=== PATIENT | female | born 1955 | race Caucasian/White ===

== ENCOUNTER 2016-05-25 13:41 | Outpatient (CLI) | payer MEDICARE | END 2016-05-25 13:42 | disposition home or self-care (01) | DX: E03.9 Hypothyroidism, unspecified (principal) ==

== ENCOUNTER 2016-05-31 11:27 | Outpatient (CLI) | payer MEDICARE | END 2016-05-31 11:28 | disposition home or self-care (01) | DX: Z83.3 Family history of diabetes mellitus (principal); Z13.1 Encounter for screening for diabetes mellitus ==

== ENCOUNTER 2016-06-01 10:30 | Outpatient (CLI) | payer MEDICARE | END 2016-06-01 10:31 | disposition home or self-care (01) | DX: R60.0 Localized edema (principal) ==

== ENCOUNTER 2016-07-22 12:39 | Outpatient (CLI) | payer MEDICARE ==
[2016-07-22 18:33] LABS: THYROID STIMULATING HORMONE 4.95 uIU/mL (0.34-5.60)
== END 2016-07-22 12:40 | disposition home or self-care (01) ==
LOC: LAB.F 12:39
PROVIDERS: ATTEND Nurse Practitioner Family
DX: E03.9 Hypothyroidism, unspecified (principal)
CPT/HCPCS: 36415; 84439; 84443

== ENCOUNTER 2016-11-23 16:45 | Emergency (ER) | payer MEDICARE ==
[2016-11-23] MEDS ORDERED: ASPIRIN CHEW 81 MG TABLET PO STA (17:03)
--- NOTE | 2016-11-23 17:08 | ED Physician Documentation ---
PD HPI ABD PAIN - Stated complaint Stated Complaint: CHEST PX,JAW PX - History obtained from History obtained from: Patient, Family () - History of Present Illness Timing - onset: Other (developed substernal chest pressure about 1/2 hour ago while shopping with radiation to jaw, waxed and waned, now gone. No radation to back. No dyspnea, dizziness, nausea or sweats or fatigue. Other than jaw radiation feels like past indigestion.) Review of Systems Ten Systems: 10 systems reviewed and negative Constitutional: denies: Fever, Chills Ears: reports: Reviewed and negative Cardiac: reports: Chest pain / pressure. denies: Palpitations, Pedal edema, Calf pain Respiratory: reports: Reviewed and negative GI: denies: Abdominal Pain, Nausea, Vomiting Musculoskeletal: reports: Extremity swelling (on and off RLE swelling for 3 mos) PD PAST MEDICAL HISTORY - Past Medical History Past Medical History: Yes Endocrine/Autoimmune: HyPOthyroidism GI: Ulcers - Past Surgical History Past Surgical History: Yes General: Gastric surgery - Present Medications Home Medications: Ambulatory Orders Medication Instructions Recorded Confirmed Ferrous Fumarate 324 mg PO DAILY #90 tablet 11/23/16 Levothyroxine [Synthroid] 1 tab PO DAILY 11/23/16 11/23/16 Omeprazole [PriLOSEC] 20 mg PO DAILY #90 capsule 11/23/16 hydroCHLOROthiazide [Hydrodiuril] 12.5 mg PO DAILY 11/23/16 11/23/16 - Allergies Allergies/Adverse Reactions: Allergies Allergy/AdvReac Type Severity Reaction Status Date / Time Sulfa (Sulfonamide Allergy Anaphylaxis Verified 11/23/16 17:09 Antibiotics) Tetracyclines AdvReac Anaphylaxis Verified 11/23/16 17:09 - Living Situation Living Situation: reports: With family - Social History Does the pt smoke?: No Does the pt drink ETOH?: No - Family History Family history: reports: Other (Bother/dad with CHF) PD ED PE NORMAL - Vitals Vital signs reviewed: Yes - General General: Alert and oriented X 3, No acute distress - HEENT HEENT: PERRL, EOMI - Neck Neck: Supple, no meningeal sign, No bony TTP - Cardiac Cardiac: RRR, No murmur - Respiratory Respiratory: No respiratory distress, Clear bilaterally - Abdomen Abdomen: Normal bowel sounds, Soft, Non tender - Back Back: No CVA TTP, No spinal TTP - Derm Derm: Normal color, Warm and dry, No rash - Extremities Extremities: No edema, No calf tenderness / cord - Neuro Neuro: Alert and oriented X 3, Normal speech - Psych Psych: Normal mood, Normal affect Results - Vitals Vitals: Vital Signs - 24 hr 11/23/16 11/23/16 11/23/16 17:06 18:55 19:17 Temperature 37.3 C Heart Rate 75 69 70 Respiratory 15 15 17 Rate Blood Pressure 142/79 H 142/79 H 133/77 H O2 Saturation 100 98 100 Oxygen O2 Source Room air - EKG (time done) 1651 Rate: Rate (enter#) (77) Rhythm: NSR Palmer: Normal Intervals: Normal HI QRS: Normal Ischemia: Normal ST segments Computer interpretation: Agree with computer - Labs Labs: Laboratory Tests 11/23/16 11/23/16 11/23/16 17:00 17:11 17:22 WBC 5.0 RBC 3.73 L Hgb 9.7 L Hct 31.1 L MCV 83.3 MCH 26.1 L MCHC 31.3 L RDW 16.6 H Plt Count 318 MPV 8.4 Neut # 2.7 Lymph # 1.6 Liberty # 0.5 Eos # 0.1 Baso # 0.0 Absolute Nucleated RBC 0.00 Nucleated RBC % 0.0 D-Dimer < 200.0 L Sodium 131 L Potassium 4.2 Chloride 100 L Carbon Dioxide 24 Anion Gap 7.0 BUN 15 Creatinine 0.8 Estimated GFR (MDRD) 73 L Glucose 111 H Calcium 7.9 L Total Bilirubin 0.6 AST 25 ALT 18 Alkaline Phosphatase 52 Troponin I Total Protein 6.8 Albumin 4.1 Globulin 2.7 Albumin/Globulin Ratio 1.5 Lipase 19 L 11/23/16 11/23/16 17:22 18:58 WBC RBC Hgb Hct MCV MCH MCHC RDW Plt Count MPV Neut # Lymph # Liberty # Eos # Baso # Absolute Nucleated RBC Nucleated RBC % D-Dimer Sodium Potassium Chloride Carbon Dioxide Anion Gap BUN Creatinine Estimated GFR (MDRD) Glucose Calcium Total Bilirubin AST ALT Alkaline Phosphatase Troponin I < 0.04 < 0.04 Total Protein Albumin Globulin Albumin/Globulin Ratio Lipase - Rads (name of study) 1v chest Radiology: EMP read contemporaneously (normal) PD MEDICAL DECISION MAKING - ED course ED course: 60-year-old woman woman with resolved pain, initial workup shows a nonischemic EKG while she is pain-free. She is administered aspirin. Her chest x-ray is normal. She is noted to have anemia, this is been a recurrent issue in the past and she has been noncompliant with her iron and Prilosec lately which she is given a prescription for. She also has modest hyponatremia, she really recently started occasional hydrochlorothiazide for recurrent right leg swelling. 2 troponins were done 2 hours apart in the emergency department which were both undetectable.Discussed need for follow-up for recheck of anemia, hyponatremia, and a stress test. Departure - Departure Disposition: 01 Home, Self Care Clinical Impression: Hyponatremia Chest pain Qualifiers: Chest pain type: unspecified Qualified Code(s): R07.9 - Chest pain, unspecified Anemia Qualifiers: Anemia type: iron deficiency Iron deficiency anemia type: unspecified iron deficiency Qualified Code(s): D50.9 - Iron deficiency anemia, unspecified Condition: Good Record reviewed to determine appropriate education?: Yes Instructions: ED Chest Pain Atypical Unkn Cause Prescriptions: Ferrous Fumarate 324 mg PO DAILY #90 tablet Omeprazole [PriLOSEC] 20 mg PO DAILY #90 capsule Comments: Return immediately for recurrent chest pain, call 911. Follow-up with your doctor for reevaluation of your recurrent anemia, hyponatremia (low sodium), and to schedule a stress test. Your blood pressure was elevated today on check into the emergency department. This does not mean that you have hypertension, it is a common phenomenon to come to the emergency department and have elevated blood pressure. I recommend that she see your primary care physician within the week to have it rechecked when you are feeling better.
[2016-11-23 17:10] LABS: EOSINOPHILS # (AUTO) 0.1 10^3/uL (0.0-0.7); EOSINOPHILS % (AUTO) 1.1 %; HCT - HEMATOCRIT 31.1 % (37.0-47.0); HGB - HEMOGLOBIN 9.7 g/dL (12.0-16.0); LYMPHOCYTES # (AUTO) 1.6 10^3/uL (1.5-3.5); LYMPHOCYTES % (AUTO) 32.9 %; MEAN CORPUSCULAR HEMOGLOBIN 26.1 pg (27.0-31.0); MEAN CORPUSCULAR HGB CONC 31.3 g/dL (32.0-36.0); MEAN CORPUSCULAR VOLUME 83.3 fL (81.0-99.0); MEAN PLATELET VOLUME 8.4 fL (7.9-10.8); MONOCYTES # (AUTO) 0.5 10^3/uL (0.0-1.0); MONOCYTES % (AUTO) 10.3 %; NEUTROPHILS # (AUTO) 2.7 10^3/uL (1.5-6.6); NEUTROPHILS % (AUTO) 54.7 %; RED BLOOD COUNT 3.73 10^6/uL (4.20-5.40); RED CELL DISTRIBUTION WIDTH 16.6 % (12.0-15.0)
[2016-11-23] MEDS ORDERED: ASPIRIN CHEW 81 MG TABLET ONE (17:18)
--- NOTE | 2016-11-23 17:26 | XRAY Preliminary Report ---
Exam: XR CHEST 1 VIEW IMPRESSION: No acute intrathoracic plain film abnormality. [facility] SITE ID: [id number]
--- NOTE | 2016-11-23 17:27 | XRAY Report ---
EXAM: CHEST RADIOGRAPHY EXAM DATE: 11/23/2016 05:14 PM. CLINICAL HISTORY: Chest pain. COMPARISON: None. TECHNIQUE: 1 view. FINDINGS: Lungs/Pleura: No focal opacities evident. No pleural effusion. No pneumothorax. Mediastinum: There is mild cardiomegaly. Other: None. IMPRESSION: No acute intrathoracic plain film abnormality. [facility] Referring Provider Line: [phone] SITE ID: [id number]
[2016-11-23 17:39] LABS: ALBUMIN/GLOBULIN RATIO 1.5 (1.0-2.2); BILIRUBIN,TOTAL 0.6 mg/dL (0.2-1.0); CALCIUM 7.9 mg/dL (8.5-10.3); CREATININE 0.8 mg/dL (0.4-1.0); POTASSIUM 4.2 mmol/L (3.5-5.0); TOTAL PROTEIN 6.8 g/dL (6.7-8.2)
[2016-11-23 19:43] VITALS: BP 132/78
== END 2016-11-23 19:40 | disposition home or self-care (01) ==
LOC: ED 16:45
DX: E87.1 Hypo-osmolality and hyponatremia (principal); R07.9 Chest pain, unspecified; D50.9 Iron deficiency anemia, unspecified; E03.9 Hypothyroidism, unspecified; R03.0 Elevated blood-pressure reading, without diagnosis of hypertension
CPT/HCPCS: 36415; 71010; 80053; 83690; 84484; 85025; 85379; 93005; 99283; 99284; A9270

== ENCOUNTER 2017-06-22 08:00 | Outpatient (CLI) | payer MEDICARE ==
[2017-06-22 17:47] LABS: BILIRUBIN,URINE NEGATIVE (NEGATIVE); GLUCOSE, URINE (UA) NEGATIVE (NEGATIVE); KETONES,URINE (UA) TRACE mg/dL (NEGATIVE); LEUKOCYTE ESTERASE, URINE NEGATIVE (NEGATIVE); NITRITE,URINE NEGATIVE (NEGATIVE); OCCULT BLOOD,URINE TRACE-LYSE (NEGATIVE); PROTEIN,URINE NEGATIVE (NEGATIVE); UROBILINOGEN,URINE 0.2 (NORMAL) E.U./dL (NORMAL)
[2017-06-22 17:48] LABS: CLARITY,URINE CLEAR (CLEAR)
[2017-06-22 17:58] LABS: BACTERIA,URINE Few /HPF (None Seen); RBC,URINE 0-5 /HPF (0-5); SQUAMOUS EPITHELIAL CELL,UR NONE SEEN (<= Few)
== END 2017-06-22 08:01 | disposition home or self-care (01) ==
LOC: LAB.R 08:00
PROVIDERS: ATTEND Nurse Practitioner Family
DX: R30.0 Dysuria (principal)
CPT/HCPCS: 81001; 87086

== ENCOUNTER 2017-06-27 08:11 | Outpatient (CLI) | payer MEDICARE ==
[2017-06-27 12:07] LABS: BASOPHILS % (AUTO) 0.4 %; EOSINOPHILS # (AUTO) 0.1 10^3/uL (0.0-0.7); EOSINOPHILS % (AUTO) 2.2 %; HGB - HEMOGLOBIN 10.5 g/dL (12.0-16.0); LYMPHOCYTES # (AUTO) 1.6 10^3/uL (1.5-3.5); LYMPHOCYTES % (AUTO) 34.2 %; MEAN CORPUSCULAR HEMOGLOBIN 26.8 pg (27.0-31.0); MEAN CORPUSCULAR HGB CONC 31.9 g/dL (32.0-36.0); MEAN CORPUSCULAR VOLUME 83.8 fL (81.0-99.0); MONOCYTES # (AUTO) 0.5 10^3/uL (0.0-1.0); MONOCYTES % (AUTO) 9.9 %; NEUTROPHILS # (AUTO) 2.5 10^3/uL (1.5-6.6); NEUTROPHILS % (AUTO) 53.3 %; PLT - PLATELET COUNT 464 10^3/uL (130-450); RED BLOOD COUNT 3.93 10^6/uL (4.20-5.40); RED CELL DISTRIBUTION WIDTH 14.6 % (12.0-15.0); WHITE BLOOD COUNT 4.7 x10^3/uL (4.8-10.8)
[2017-06-27 12:19] LABS: % IRON SATURATION 7 % (20-50); ALBUMIN 3.8 g/dL (3.2-5.5); ALBUMIN/GLOBULIN RATIO 1.1 (1.0-2.2); ALKALINE PHOSPHATASE 53 IU/L (42-121); ALT ALANINE AMINOTRANSFERASE 12 IU/L (10-60); AST ASPARTATE AMINOTRANSFERASE 23 IU/L (10-42); BILIRUBIN,TOTAL 0.6 mg/dL (0.2-1.0); BUN - BLOOD UREA NITROGEN 12 mg/dL (6-20); CALCIUM 8.6 mg/dL (8.5-10.3); CARBON DIOXIDE - CO2 28 mmol/L (21-32); CHLORIDE 100 mmol/L (101-111); CHOL/HDL RATIO 3.5 (<4.4); CHOLESTEROL 165 mg/dL; GFR - MDRD 56 (>89); GLUCOSE 101 mg/dL (70-100); HDL CHOLESTEROL 47 mg/dL; IRON 24 ug/dL (28-170); LDL CHOLESTEROL,CALCULATED 103 mg/dL; LDL/HDL RATIO 2.2 (<4.4); SODIUM 136 mmol/L (135-145); THYROID STIMULATING HORMONE 4.39 uIU/mL (0.34-5.60); TOTAL IRON BINDING CAPACITY 354 ug/dL (250-450); TOTAL PROTEIN 7.4 g/dL (6.7-8.2); TRANSFERRIN 253 mg/dL (192-382); VLDL CHOLESTEROL 15 mg/dL
[2017-06-27 12:28] LABS: FOLATE 5.03 ng/mL (5.90 - >24.8)
== END 2017-06-27 08:12 | disposition home or self-care (01) ==
LOC: LAB.F 08:11
PROVIDERS: ATTEND Nurse Practitioner Family
DX: K90.9 Intestinal malabsorption, unspecified (principal); E03.9 Hypothyroidism, unspecified; E78.1 Pure hyperglyceridemia; Z13.6 Encounter for screening for cardiovascular disorders
CPT/HCPCS: 36415; 80053; 80061; 82607; 82746; 83540; 83721; 84443; 84466; 85025

== ENCOUNTER 2017-07-08 08:00 | Outpatient (CLI) | payer MEDICARE ==
[2017-07-08 17:40] LABS: BILIRUBIN,URINE NEGATIVE (NEGATIVE); GLUCOSE, URINE (UA) NEGATIVE (NEGATIVE); KETONES,URINE (UA) NEGATIVE (NEGATIVE); LEUKOCYTE ESTERASE, URINE NEGATIVE (NEGATIVE); NITRITE,URINE NEGATIVE (NEGATIVE); OCCULT BLOOD,URINE TRACE-INTA (NEGATIVE); PROTEIN,URINE NEGATIVE (NEGATIVE); UROBILINOGEN,URINE 0.2 (NORMAL) E.U./dL (NORMAL)
[2017-07-08 17:47] LABS: CLARITY,URINE CLEAR (CLEAR)
[2017-07-08 18:12] LABS: BACTERIA,URINE Many /HPF (None Seen); RBC,URINE 0-5 /HPF (0-5); SQUAMOUS EPITHELIAL CELL,UR NONE SEEN (<= Few); WBC CLUMPS,URINE PRESENT
== END 2017-07-08 08:01 | disposition home or self-care (01) ==
LOC: LAB.R 08:00
PROVIDERS: ATTEND Nurse Practitioner Family
DX: R30.0 Dysuria (principal)
CPT/HCPCS: 81001; 87086; 87181

== ENCOUNTER 2017-07-18 19:11 | Outpatient (CLI) | payer MEDICARE ==
--- NOTE | 2017-07-19 02:22 | Ultrasound Report ---
EXAM: RIGHT LOWER EXTREMITY VENOUS ULTRASOUND EXAM DATE: 07/18/2017 07:47 PM. CLINICAL HISTORY: LEG EDEMA, RIGHT. COMPARISON: None. TECHNIQUE: Real-time sonographic vascular imaging was performed by the research librarian through the lower extremity utilizing both color-flow and Doppler spectral analysis. Multiple real estate representative static rere ges were saved for review. FINDINGS: Common Femoral Vein (CFV): Normal. CFV-GSV Junction: Normal. Profunda Femoral Vein (PFV): Normal. Femoral Vein (FV) Prox: Normal. Femoral Vein (FV) Mid: Normal. Femoral Vein (FV) Dist: Normal. Popliteal Vein: Normal. Posterior Tibial Veins: Suboptimally visualized. Peroneal Veins: Suboptimally visualized. Other: None. IMPRESSION: No evidence for deep venous thrombosis. Suboptimally visualized calf veins. [facility] Referring Provider Line: [phone] SITE ID: [id number]
== END 2017-07-18 19:12 | disposition home or self-care (01) ==
LOC: DI 19:11
PROVIDERS: ATTEND Nurse Practitioner Family
DX: R60.0 Localized edema (principal)

== ENCOUNTER 2017-12-21 13:24 | Outpatient (CLI) | payer MEDICARE ==
--- NOTE | 2017-12-22 14:26 | Mammography Report ---
Reason: SCREENING MAMMO Procedure Date: 12/21/2017 Accession Number: [id number] / [id number] Procedure: VICTORIA - Screening Mammo w/Jones CPT Code: FULL RESULT: EXAM: Screening Mammo w/Jones DATE: 12/21/2017 2:58 PM CLINICAL HISTORY: Routine screening. Family history breast cancer in sister at age 54. No personal history of breast cancer. TECHNIQUE: Bilateral CC and MLO views were obtained. COMPARISON: 12/25/2013 through 10/03/2008. FINDINGS: The breasts demonstrate scattered fibroglandular densities bilaterally. Bilateral breasts: There are no suspicious masses, calcifications or areas of distortion. IMPRESSION: Negative examination RECOMMENDATION: Routine annual screening unless otherwise clinically indicated. BI-RADS CATEGORY 1: Negative STANDARD QUALIFYING STATEMENTS: 1. This examination was not reviewed with the aid of Computer-Aided Detection (CAD). 2. A negative or benign imaging report should not preclude biopsy if clinically suspicious findings are present. 3. Dense breasts may obscure an underlying neoplasm. 4. This examination was reviewed with the aid of 3D breast imaging (tomosynthesis).
== END 2017-12-21 13:25 | disposition home or self-care (01) ==
LOC: DI 13:24
DX: Z12.31 Encounter for screening mammogram for malignant neoplasm of breast (principal); Z80.3 Family history of malignant neoplasm of breast
CPT/HCPCS: 77063; 77067

== ENCOUNTER 2018-01-09 11:21 | Outpatient (CLI) | payer MEDICARE | END 2018-01-09 11:22 | disposition home or self-care (01) | LOC: DI 11:21 | PROVIDERS: ATTEND Nurse Practitioner Family | DX: R01.1 Cardiac murmur, unspecified (principal); R60.0 Localized edema; R06.09 Other forms of dyspnea; I07.1 Rheumatic tricuspid insufficiency | CPT/HCPCS: 93306 ==

== ENCOUNTER 2018-02-11 13:17 | Outpatient (CLI) | payer MEDICARE ==
--- NOTE | 2018-02-12 21:50 | XRAY Report ---
Reason: HIP JOINT PAIN, RIGHT Procedure Date: 02/11/2018 Accession Number: [id number] / [id number] Procedure: XR - Hip w/Pelvis 2-3V RT CPT Code: FULL RESULT: EXAM: RIGHT HIP AND PELVIS RADIOGRAPHY. EXAM DATE: 02/11/2018 01:43 PM. HISTORY: Hip joint pain, right. COMPARISONS: None. TECHNIQUE: 1 view of the pelvis and 1 view of the hip. FINDINGS: Bones: Subcortical cysts and sclerosis at the superior aspect of the right acetabulum. The bones are osteopenic. No acute fracture or bone lesions. Joints: Moderate to severe narrowing at the central to superior aspect of the right hip joint. No dislocation. Soft Tissues: Normal. No soft tissue swelling. IMPRESSION: 1. Moderate to severe right hip osteoarthritis. [facility]
== END 2018-02-11 13:18 | disposition home or self-care (01) ==
LOC: DI 13:17
PROVIDERS: ATTEND Internal Medicine Rheumatology
DX: M16.11 Unilateral primary osteoarthritis, right hip (principal)

== ENCOUNTER 2018-02-24 16:15 | Outpatient (CLI) | payer MEDICARE ==
--- NOTE | 2018-02-25 22:19 | XRAY Report ---
Reason: PAIN IN RIGHT KNEE Procedure Date: 02/24/2018 Accession Number: [id number] / [id number] Procedure: XR - Knee 4 View RT CPT Code: FULL RESULT: EXAM: RIGHT KNEE RADIOGRAPHY EXAM DATE: 02/24/2018 05:42 PM. CLINICAL HISTORY: Right knee pain x3 months COMPARISON: None. TECHNIQUE: 4 views. FINDINGS: Bones: No fracture or bone lesion. Joints: Normal alignment. Minimal osteophytosis in the medial and patellofemoral compartments. Joint spaces are maintained. No effusion. Soft Tissues: Unremarkable. IMPRESSION: 1. Minimal degenerative changes in the medial and patellofemoral compartment. 2. No acute bony abnormality. [facility]
== END 2018-02-24 16:16 | disposition home or self-care (01) ==
LOC: DI 16:15
PROVIDERS: ATTEND Nurse Practitioner Family
DX: M17.11 Unilateral primary osteoarthritis, right knee (principal)

== ENCOUNTER 2018-06-28 08:00 | Outpatient (CLI) | payer MEDICARE ==
[2018-06-28 17:53] LABS: BILIRUBIN,URINE NEGATIVE (NEGATIVE); GLUCOSE, URINE (UA) NEGATIVE (NEGATIVE); KETONES,URINE (UA) NEGATIVE (NEGATIVE); LEUKOCYTE ESTERASE, URINE TRACE (NEGATIVE); NITRITE,URINE NEGATIVE (NEGATIVE); OCCULT BLOOD,URINE NEGATIVE (NEGATIVE); PROTEIN,URINE NEGATIVE (NEGATIVE); UROBILINOGEN,URINE 0.2 (NORMAL) E.U./dL (NORMAL)
[2018-06-28 18:05] LABS: CLARITY,URINE CLEAR (CLEAR)
[2018-06-28 18:08] LABS: WBC CLUMPS,URINE PRESENT
[2018-06-28 18:09] LABS: BACTERIA,URINE None Seen /HPF (None Seen); RBC,URINE None Seen /HPF (0-5); SQUAMOUS EPITHELIAL CELL,UR NONE SEEN (<= Few)
== END 2018-06-28 23:59 | disposition home or self-care (01) ==
LOC: LAB.R 08:00
PROVIDERS: ATTEND Nurse Practitioner Family
DX: Z01.812 Encounter for preprocedural laboratory examination (principal)
CPT/HCPCS: 81001; 81003; 87086; 87181

== ENCOUNTER 2018-06-29 10:54 | Outpatient (CLI) | payer MEDICARE ==
[2018-06-29 17:41] LABS: BASOPHILS % (AUTO) 0.5 %; EOSINOPHILS # (AUTO) 0.1 10^3/uL (0.0-0.7); EOSINOPHILS % (AUTO) 1.9 %; HGB - HEMOGLOBIN 8.8 g/dL (12.0-16.0); LYMPHOCYTES # (AUTO) 1.4 10^3/uL (1.5-3.5); LYMPHOCYTES % (AUTO) 35.8 %; MEAN CORPUSCULAR HEMOGLOBIN 26.6 pg (27.0-31.0); MEAN CORPUSCULAR HGB CONC 30.8 g/dL (32.0-36.0); MEAN CORPUSCULAR VOLUME 86.2 fL (81.0-99.0); MEAN PLATELET VOLUME 8.2 fL (7.9-10.8); MONOCYTES # (AUTO) 0.5 10^3/uL (0.0-1.0); MONOCYTES % (AUTO) 11.9 %; NEUTROPHILS % (AUTO) 49.9 %; PLT - PLATELET COUNT 374 10^3/uL (130-450); RED BLOOD COUNT 3.31 10^6/uL (4.20-5.40); RED CELL DISTRIBUTION WIDTH 15.9 % (12.0-15.0); WHITE BLOOD COUNT 3.9 x10^3/uL (4.8-10.8)
[2018-06-29 18:00] LABS: ALBUMIN 4.1 g/dL (3.2-5.5); ALBUMIN/GLOBULIN RATIO 1.4 (1.0-2.2); BILIRUBIN,TOTAL 0.6 mg/dL (0.2-1.0); CALCIUM 8.5 mg/dL (8.5-10.3)
== END 2018-06-29 10:55 | disposition home or self-care (01) ==
LOC: LAB.F 10:54
PROVIDERS: ATTEND Orthopaedic Surgery
DX: Z01.818 Encounter for other preprocedural examination (principal); Z01.812 Encounter for preprocedural laboratory examination
CPT/HCPCS: 36415; 80053; 85025; 85610

== ENCOUNTER 2018-06-30 10:58 | Outpatient (CLI) | payer MEDICARE ==
[2018-06-30 11:52] LABS: % IRON SATURATION 8 % (20-50); IRON 29 ug/dL (28-170); TOTAL IRON BINDING CAPACITY 371 ug/dL (250-450); TRANSFERRIN 265 mg/dL (192-382)
== END 2018-06-30 10:59 | disposition home or self-care (01) ==
LOC: LAB.F 10:58
PROVIDERS: ATTEND Nurse Practitioner Family
DX: D64.9 Anemia, unspecified (principal)
CPT/HCPCS: 36415; 82728; 83540; 84466

== ENCOUNTER 2018-07-02 17:03 | Outpatient (CLI) | payer MEDICARE ==
[2018-07-02 18:09] LABS: % IRON SATURATION 3 % (20-50); IRON 12 ug/dL (28-170); TOTAL IRON BINDING CAPACITY 379 ug/dL (250-450); TRANSFERRIN 271 mg/dL (192-382)
== END 2018-07-02 17:04 | disposition home or self-care (01) ==
LOC: LAB 17:03
PROVIDERS: ATTEND Orthopaedic Surgery
DX: D64.9 Anemia, unspecified (principal)
CPT/HCPCS: 36415; 83540; 84466

== ENCOUNTER 2018-07-28 08:11 | Outpatient (CLI) | payer MEDICARE ==
[2018-07-28 10:24] LABS: % IRON SATURATION 16 % (20-50); IRON 36 ug/dL (28-170); TOTAL IRON BINDING CAPACITY 230 ug/dL (250-450); TRANSFERRIN 164 mg/dL (192-382)
== END 2018-07-28 08:12 | disposition home or self-care (01) ==
LOC: LAB.F 08:11
PROVIDERS: ATTEND Orthopaedic Surgery
DX: D64.9 Anemia, unspecified (principal)
CPT/HCPCS: 36415; 82728; 83540; 84466

== ENCOUNTER 2018-08-04 13:24 | Outpatient (CLI) | payer MEDICARE | END 2018-08-04 13:25 | disposition home or self-care (01) | LOC: LAB.F 13:24 | PROVIDERS: ATTEND Orthopaedic Surgery | DX: Z96.641 Presence of right artificial hip joint (principal) | CPT/HCPCS: 85610 ==

== ENCOUNTER 2018-08-08 07:59 | Outpatient (CLI) | payer MEDICARE | END 2018-08-08 08:00 | disposition home or self-care (01) | LOC: LAB.S 07:59 | PROVIDERS: ATTEND Internal Medicine | DX: Z96.641 Presence of right artificial hip joint (principal) | CPT/HCPCS: 85610 ==

== ENCOUNTER 2018-08-11 10:14 | Outpatient (CLI) | payer MEDICARE | END 2018-08-11 10:15 | disposition home or self-care (01) | LOC: LAB.S 10:14 | PROVIDERS: ATTEND Orthopaedic Surgery | DX: Z96.641 Presence of right artificial hip joint (principal) | CPT/HCPCS: 85610 ==

== ENCOUNTER 2018-08-15 09:56 | Outpatient (CLI) | payer MEDICARE | END 2018-08-15 09:57 | disposition home or self-care (01) | LOC: LAB.S 09:56 | PROVIDERS: ATTEND Orthopaedic Surgery | DX: Z96.641 Presence of right artificial hip joint (principal) | CPT/HCPCS: 85610 ==

== ENCOUNTER 2018-08-18 09:46 | Outpatient (CLI) | payer MEDICARE | END 2018-08-18 09:47 | disposition home or self-care (01) | LOC: LAB.S 09:46 | PROVIDERS: ATTEND Orthopaedic Surgery | DX: Z96.641 Presence of right artificial hip joint (principal) | CPT/HCPCS: 85610 ==

== ENCOUNTER 2018-08-22 10:28 | Outpatient (CLI) | payer MEDICARE | END 2018-08-22 10:29 | disposition home or self-care (01) | LOC: LAB.S 10:28 | PROVIDERS: ATTEND Orthopaedic Surgery | DX: Z96.641 Presence of right artificial hip joint (principal) | CPT/HCPCS: 85610 ==

== ENCOUNTER 2018-08-25 13:15 | Outpatient (CLI) | payer MEDICARE ==
[2018-08-25 17:55] LABS: INR 1.8 (0.8-1.2); PT - PROTHROMBIN TIME 20.7 secs (9.9-12.6)
== END 2018-08-25 13:16 | disposition home or self-care (01) ==
LOC: LAB.S 13:15
PROVIDERS: ATTEND Pharmacist
DX: Z79.01 Long term (current) use of anticoagulants (principal); Z96.649 Presence of unspecified artificial hip joint
CPT/HCPCS: 36415; 85610

== ENCOUNTER 2019-01-12 18:43 | Emergency (ER) | payer MEDICARE ==
[2019-01-12] MEDS ORDERED: diazePAM 5 MG TABLET PO STA (19:22)
--- NOTE | 2019-01-12 19:24 | ED Physician Documentation ---
PD HPI MHE - Stated complaint Stated Complaint: MHE - Chief complaint Chief Complaint: MHE - History obtained from History obtained from: Patient - History of Present Illness Primary symptom: Other (She found out today that her son by suicide. She is very sad and would like some Valium to help her through the process. She has no personal thoughts of suicidal ideation.) Review of Systems Constitutional: reports: Reviewed and negative Cardiac: reports: Reviewed and negative Respiratory: reports: Reviewed and negative PD PAST MEDICAL HISTORY - Past Medical History Past Medical History: No Endocrine/Autoimmune: HyPOthyroidism GI: Ulcers : Kidney stones Musculoskeletal: Chronic back pain - Past Surgical History Past Surgical History: Yes General: Gastric surgery - Present Medications Home Medications: Ambulatory Orders Medication Instructions Recorded Confirmed Ferrous Fumarate 324 mg PO DAILY #90 tablet 11/23/16 Levothyroxine [Synthroid] 1 tab PO DAILY 11/23/16 11/23/16 Omeprazole [PriLOSEC] 20 mg PO DAILY #90 capsule 11/23/16 hydroCHLOROthiazide [Hydrodiuril] 12.5 mg PO DAILY 11/23/16 11/23/16 diazePAM [Valium] 5 - 10 mg PO TID PRN #15 tablet 01/12/19 - Allergies Allergies/Adverse Reactions: Allergies Allergy/AdvReac Type Severity Reaction Status Date / Time Sulfa (Sulfonamide Allergy Anaphylaxis Verified 01/12/19 18:46 Antibiotics) Tetracyclines AdvReac Anaphylaxis Verified 01/12/19 18:46 - Social History Does the pt smoke?: No Smoking Status: Never smoker Does the pt drink ETOH?: No Does the pt have substance abuse?: No - Immunizations Immunizations are current?: Yes - POLST Patient has POLST: No PD ED PE NORMAL - Vitals Vital signs reviewed: Yes - General General: Alert and oriented X 3, Other (Tearful and sad, otherwise in no distress) - HEENT HEENT: PERRL - Neuro Neuro: Alert and oriented X 3, Normal speech - Psych Psych: Normal affect. No: Normal mood Results - Vitals Vitals: Vital Signs - 24 hr 01/12/19 18:46 Temperature 36.6 C Heart Rate 87 Respiratory 16 Rate Blood Pressure 121/95 H O2 Saturation 96 Oxygen O2 Source Room air PD MEDICAL DECISION MAKING - ED course ED course: 63-year-old woman presents requesting something like Valium for an acute grief reaction which is understandable. We discussed the potential downsides, and the need for counseling. Departure - Departure Disposition: 01 Home, Self Care Clinical Impression: Grief reaction Condition: Good Record reviewed to determine appropriate education?: Yes Instructions: ED Stress React Prescriptions: diazePAM [Valium] 5 - 10 mg PO TID PRN #15 tablet PRN Reason: Spasms Comments: As discussed I strongly recommend you find and set up care with a counselor for ongoing care. Do not drink or drive while taking the diazepam/Valium. Return for new or worsening symptoms.
[2019-01-12 19:41] VITALS: BP 140/108
== END 2019-01-12 19:41 | disposition home or self-care (01) ==
LOC: ED 18:43
DX: F43.20 Adjustment disorder, unspecified (principal)
CPT/HCPCS: 99282; 99283; A9270

== ENCOUNTER 2019-07-25 08:00 | Outpatient (CLI) | payer MEDICARE ==
[2019-07-25 18:46] LABS: BASOPHILS # (AUTO) 0.1 10^3/uL (0.0-0.1); BASOPHILS % (AUTO) 0.7 %; EOSINOPHILS # (AUTO) 0.3 10^3/uL (0.0-0.7); EOSINOPHILS % (AUTO) 4.6 %; HGB - HEMOGLOBIN 12.3 g/dL (12.0-16.0); LYMPHOCYTES # (AUTO) 1.5 10^3/uL (1.5-3.5); LYMPHOCYTES % (AUTO) 22.6 %; MEAN CORPUSCULAR HEMOGLOBIN 32.8 pg (27.0-31.0); MEAN CORPUSCULAR HGB CONC 33.5 g/dL (32.0-36.0); MEAN CORPUSCULAR VOLUME 97.9 fL (81.0-99.0); MEAN PLATELET VOLUME 9.7 fL (7.9-10.8); MONOCYTES # (AUTO) 0.6 10^3/uL (0.0-1.0); MONOCYTES % (AUTO) 8.6 %; NEUTROPHILS # (AUTO) 4.3 10^3/uL (1.5-6.6); NEUTROPHILS % (AUTO) 63.2 %; PLT - PLATELET COUNT 328 10^3/uL (130-450); RED BLOOD COUNT 3.75 10^6/uL (4.20-5.40); RED CELL DISTRIBUTION WIDTH 11.9 % (12.0-15.0); WHITE BLOOD COUNT 6.8 x10^3/uL (4.8-10.8)
[2019-07-25 18:58] LABS: HB2 TOTAL 12.5 g/dL; HEMOGLOBIN A1C 0.41 g/dL; HEMOGLOBIN A1C % 5.2 % (4.6-6.2)
[2019-07-25 19:09] LABS: % IRON SATURATION 12 % (20-50); ALBUMIN 4.3 g/dL (3.2-5.5); ALBUMIN/GLOBULIN RATIO 1.8 (1.0-2.2); ALKALINE PHOSPHATASE 49 IU/L (42-121); ALT ALANINE AMINOTRANSFERASE 28 IU/L (10-60); AST ASPARTATE AMINOTRANSFERASE 36 IU/L (10-42); BILIRUBIN,TOTAL 1.3 mg/dL (0.2-1.0); BUN - BLOOD UREA NITROGEN 25 mg/dL (6-20); CALCIUM 8.8 mg/dL (8.5-10.3); CARBON DIOXIDE - CO2 27 mmol/L (21-32); CHLORIDE 96 mmol/L (101-111); CHOL/HDL RATIO 2.6 (<4.4); CHOLESTEROL 151 mg/dL; CREATININE 1.2 mg/dL (0.4-1.0); GLUCOSE 86 mg/dL (70-100); HDL CHOLESTEROL 58 mg/dL; IRON 33 ug/dL (28-170); LDL CHOLESTEROL,CALCULATED 78 mg/dL; LDL/HDL RATIO 1.3 (<4.4); SODIUM 132 mmol/L (135-145); TOTAL IRON BINDING CAPACITY 272 ug/dL (250-450); TOTAL PROTEIN 6.7 g/dL (6.7-8.2); TRANSFERRIN 194 mg/dL (192-382); VLDL CHOLESTEROL 15 mg/dL
[2019-07-25 19:23] LABS: FERRITIN 307.3 ng/mL (11.0-306.8)
== END 2019-07-25 23:59 | disposition home or self-care (01) ==
LOC: LAB.WCP 08:00
PROVIDERS: ATTEND Family Medicine
DX: Z98.84 Bariatric surgery status (principal)
CPT/HCPCS: 36415; 80053; 80061; 82607; 82728; 83036; 83540; 83721; 84443; 84466; 85025

== ENCOUNTER 2019-08-02 08:00 | Outpatient (CLI) | payer MEDICARE | END 2019-08-02 08:01 | disposition home or self-care (01) | LOC: LAB 08:00 | PROVIDERS: ATTEND Physician Assistant Medical | DX: Z20.828 Contact with and (suspected) exposure to other viral communicable diseases (principal) | CPT/HCPCS: 81599 ==

== ENCOUNTER 2019-08-02 19:54 | Outpatient (CLI) | payer MEDICARE ==
--- NOTE | 2019-08-02 19:57 | XRAY Report ---
PROCEDURE: Chest 2 View X-Ray INDICATIONS: FEVER WITH CHILLS TECHNIQUE: 2 view(s) of the chest. COMPARISON: None. FINDINGS: Surgical changes and devices: None. Lungs and pleura: No pleural effusions or pneumothorax. Lungs are free of focal or patchy pneumonia but there is a mild interstitial prominence, which is nonspecific.. Mediastinum: Mediastinal contours are normal. Heart size is normal. Bones and chest wall: No suspicious bony abnormalities. Soft tissues appear unremarkable. IMPRESSION: Mild interstitial prominence, nonspecific, within the lung parenchyma. This for example could be produced by prior smoking. No definite pneumonia found. Reviewed by: Cal Kam MD on 08/02/2019 7:55 PM PDT Approved by: Cal Kam MD on 08/02/2019 7:55 PM PDT Station ID: [id number]
[2019-08-02 20:31] LABS: BASOPHILS % (AUTO) 0.4 %; EOSINOPHILS # (AUTO) 0.1 10^3/uL (0.0-0.7); EOSINOPHILS % (AUTO) 0.7 %; HGB - HEMOGLOBIN 10.2 g/dL (12.0-16.0); LYMPHOCYTES # (AUTO) 1.5 10^3/uL (1.5-3.5); LYMPHOCYTES % (AUTO) 15.2 %; MEAN CORPUSCULAR HGB CONC 31.6 g/dL (32.0-36.0); MEAN CORPUSCULAR VOLUME 98.2 fL (81.0-99.0); MEAN PLATELET VOLUME 9.7 fL (7.9-10.8); MONOCYTES # (AUTO) 1.1 10^3/uL (0.0-1.0); MONOCYTES % (AUTO) 11.5 %; NEUTROPHILS # (AUTO) 6.9 10^3/uL (1.5-6.6); NEUTROPHILS % (AUTO) 71.6 %; PLT - PLATELET COUNT 333 10^3/uL (130-450); RED BLOOD COUNT 3.29 10^6/uL (4.20-5.40); RED CELL DISTRIBUTION WIDTH 12.2 % (12.0-15.0); WHITE BLOOD COUNT 9.7 x10^3/uL (4.8-10.8)
[2019-08-02 20:37] LABS: ALBUMIN 4.1 g/dL (3.2-5.5); ALBUMIN/GLOBULIN RATIO 1.6 (1.0-2.2); BILIRUBIN,TOTAL 1.3 mg/dL (0.2-1.0); CALCIUM 8.3 mg/dL (8.5-10.3); TOTAL PROTEIN 6.7 g/dL (6.7-8.2)
== END 2019-08-02 23:59 | disposition home or self-care (01) ==
LOC: DI.S 19:54
PROVIDERS: ATTEND Physician Assistant Medical
DX: R91.8 Other nonspecific abnormal finding of lung field (principal); R50.9 Fever, unspecified; J06.9 Acute upper respiratory infection, unspecified; R06.89 Other abnormalities of breathing; Z20.828 Contact with and (suspected) exposure to other viral communicable diseases
CPT/HCPCS: 36415; 71046; 80053; 85025

== ENCOUNTER 2019-08-03 07:00 | Outpatient (CLI) | payer MEDICARE ==
[2019-08-03 15:51] LABS: BILIRUBIN,URINE NEGATIVE (NEGATIVE); GLUCOSE, URINE (UA) NEGATIVE (NEGATIVE); KETONES,URINE (UA) 15 mg/dL (NEGATIVE); LEUKOCYTE ESTERASE, URINE TRACE (NEGATIVE); NITRITE,URINE POSITIVE (NEGATIVE); OCCULT BLOOD,URINE SMALL (NEGATIVE); PH,URINE 5.5 PH (5.0-7.5); PROTEIN,URINE NEGATIVE (NEGATIVE); UROBILINOGEN,URINE 0.2 (NORMAL) E.U./dL (NORMAL)
[2019-08-03 15:59] LABS: CLARITY,URINE CLEAR (CLEAR)
[2019-08-03 16:08] LABS: BACTERIA,URINE Moderate /HPF (None Seen); RBC,URINE 0-5 /HPF (0-5); SQUAMOUS EPITHELIAL CELL,UR NONE SEEN (<= Few)
== END 2019-08-03 23:59 | disposition home or self-care (01) ==
LOC: LAB.R 07:00
PROVIDERS: ATTEND Physician Assistant Medical
DX: R50.9 Fever, unspecified (principal)
CPT/HCPCS: 81001; 81003; 87086; 87181

== ENCOUNTER 2019-08-07 17:36 | Outpatient (CLI) | payer MEDICARE | END 2019-08-07 17:37 | disposition home or self-care (01) | LOC: LAB.S 17:36 | PROVIDERS: ATTEND Family Medicine | DX: Z53.9 Procedure and treatment not carried out, unspecified reason (principal) ==

== ENCOUNTER 2020-02-11 10:32 | Outpatient (CLI) | payer MEDICARE ==
--- NOTE | 2020-02-11 11:25 | DEXA Report ---
PROCEDURE: Dexa Spine and/or Hip INDICATIONS: POSTMENOPAUSAL TECHNIQUE: Dual energy x-ray absorptiometry (DXA) was performed on a payever System. Regions measur ed are the AP Spine, femoral neck, and if needed forearm. COMPARISON: None. FINDINGS: Lumbar Spine: Bone Mineral Density 0.752 g/cm/cm,T score -3.6, Left Femoral Neck: Bone Mineral Density 0.6-0 g/cm/cm, T score -3.1, (T score greater or equal to -1.0: NORMAL) (T score from -1.1 to -2.4: OSTEOPENIA) (T score less than or equal to -2.5 to: OSTEOPOROSIS) Impression: Osteoporosis Patients with diagnosis of osteoporosis or osteopenia should have regular bone mineral density assess ment. For those eligible for Medicare, routine testing is allowed once every 2 years. Testing frequ ency can be increased for patients who have rapidly progressing disease or for those who are receivin g medical therapy to restore bone mass. Reviewed by: Ra Rich MD on 02/11/2020 11:23 AM PST Approved by: Ra Rich MD on 02/11/2020 11:23 AM PST Station ID: [id number]
== END 2020-02-11 10:33 | disposition home or self-care (01) ==
LOC: DI 10:32
PROVIDERS: ATTEND Family Medicine
DX: M81.0 Age-related osteoporosis without current pathological fracture (principal)

== ENCOUNTER 2020-02-11 12:19 | Outpatient (CLI) | payer MEDICARE ==
--- NOTE | 2020-02-12 12:23 | Mammography Report ---
BILATERAL DIGITAL SCREENING MAMMOGRAM 3D/2D: 02/11/2020 CLINICAL: Family history of breast cancer. Routine screening. Comparison is made to exams dated: 12/21/2017 mammogram and 12/25/2013 mammogram - [facility]. There are scattered fibroglandular elements in both breasts. No significant masses, calcifications, or other findings are seen in either breast. There has been no significant interval change. IMPRESSION: NEGATIVE There is no mammographic evidence of malignancy. A 1 year screening mammogram is recommended. This exam was interpreted at Station ID: [id number]. NOTE: For mammograms, a report in lay terms will be sent to the patient. Approximately 15% of breast malignancies will not be visualized mammographically. In the management of a palpable breast mass, a negative mammogram must not discourage biopsy of a clinically suspicious lesion. Electronically Signed By: Allison kowalski/arabellarad:02/11/2020 13:38:54 ACR BI-RADS Category 1: Negative 3341F PARENCHYMAL PATTERN: (A) - The breast(s) demonstrate(s) scattered fibroglandular densities. BI-RADS CATEGORY: (1) - 1 RECOMMENDATION: (ANNUAL) - Recommend routine annual screening mammography. [id number] 1 year screening LATERALITY: (B)
== END 2020-02-11 12:20 | disposition home or self-care (01) ==
LOC: DI.N 12:19
DX: Z12.31 Encounter for screening mammogram for malignant neoplasm of breast (principal); Z80.3 Family history of malignant neoplasm of breast
CPT/HCPCS: 77067

== ENCOUNTER 2020-03-19 08:00 | Outpatient (CLI) | payer MEDICARE ==
[2020-03-19 18:23] LABS: BASOPHILS % (AUTO) 0.7 %; EOSINOPHILS # (AUTO) 0.1 10^3/uL (0.0-0.7); EOSINOPHILS % (AUTO) 2.4 %; HGB - HEMOGLOBIN 12.1 g/dL (12.0-16.0); LYMPHOCYTES # (AUTO) 1.7 10^3/uL (1.5-3.5); MEAN CORPUSCULAR HEMOGLOBIN 31.6 pg (27.0-31.0); MEAN CORPUSCULAR HGB CONC 31.6 g/dL (32.0-36.0); MEAN PLATELET VOLUME 9.7 fL (7.9-10.8); MONOCYTES # (AUTO) 0.5 10^3/uL (0.0-1.0); MONOCYTES % (AUTO) 11.1 %; NEUTROPHILS # (AUTO) 1.9 10^3/uL (1.5-6.6); NEUTROPHILS % (AUTO) 44.6 %; PLT - PLATELET COUNT 347 10^3/uL (130-450); RED BLOOD COUNT 3.83 10^6/uL (4.20-5.40); RED CELL DISTRIBUTION WIDTH 11.6 % (12.0-15.0); WHITE BLOOD COUNT 4.2 x10^3/uL (4.8-10.8)
[2020-03-19 18:48] LABS: % IRON SATURATION 14 % (20-50); ALBUMIN 4.3 g/dL (3.2-5.5); ALBUMIN/GLOBULIN RATIO 1.5 (1.0-2.2); ALKALINE PHOSPHATASE 59 IU/L (42-121); ALT ALANINE AMINOTRANSFERASE 17 IU/L (10-60); AST ASPARTATE AMINOTRANSFERASE 25 IU/L (10-42); BILIRUBIN,TOTAL 0.9 mg/dL (0.2-1.0); BUN - BLOOD UREA NITROGEN 11 mg/dL (6-20); CALCIUM 8.4 mg/dL (8.5-10.3); CARBON DIOXIDE - CO2 30 mmol/L (21-32); CHLORIDE 97 mmol/L (101-111); CHOL/HDL RATIO 2.9 (<4.4); CHOLESTEROL 187 mg/dL; CREATININE 1.2 mg/dL (0.4-1.0); GLUCOSE 96 mg/dL (70-100); HDL CHOLESTEROL 64 mg/dL; IRON 37 ug/dL (28-170); LDL CHOLESTEROL,CALCULATED 100 mg/dL; LDL/HDL RATIO 1.6 (<4.4); TOTAL IRON BINDING CAPACITY 265 ug/dL (250-450); TOTAL PROTEIN 7.1 g/dL (6.7-8.2); TRANSFERRIN 189 mg/dL (192-382); VLDL CHOLESTEROL 23 mg/dL
[2020-03-19 18:52] LABS: FERRITIN 209.1 ng/mL (11.0-306.8)
== END 2020-03-19 23:59 | disposition home or self-care (01) ==
LOC: LAB.WCP 08:00
PROVIDERS: ATTEND Family Medicine
DX: D64.9 Anemia, unspecified (principal); Z98.84 Bariatric surgery status
CPT/HCPCS: 36415; 80053; 80061; 82607; 82728; 83036; 83540; 83721; 84466; 85025

== ENCOUNTER 2020-10-07 11:19 | Outpatient (CLI) | payer MEDICARE ==
[2020-10-07 18:07] LABS: BASOPHILS % (AUTO) 0.6 %; EOSINOPHILS # (AUTO) 0.1 10^3/uL (0.0-0.7); EOSINOPHILS % (AUTO) 2.1 %; HCT - HEMATOCRIT 37.7 % (37.0-47.0); HGB - HEMOGLOBIN 11.5 g/dL (12.0-16.0); LYMPHOCYTES # (AUTO) 1.5 10^3/uL (1.5-3.5); LYMPHOCYTES % (AUTO) 29.2 %; MEAN CORPUSCULAR HEMOGLOBIN 30.8 pg (27.0-31.0); MEAN CORPUSCULAR HGB CONC 30.5 g/dL (32.0-36.0); MEAN CORPUSCULAR VOLUME 101.1 fL (81.0-99.0); MEAN PLATELET VOLUME 10.2 fL (7.9-10.8); MONOCYTES # (AUTO) 0.5 10^3/uL (0.0-1.0); MONOCYTES % (AUTO) 8.9 %; NEUTROPHILS # (AUTO) 3.1 10^3/uL (1.5-6.6); PLT - PLATELET COUNT 307 10^3/uL (130-450); RED BLOOD COUNT 3.73 10^6/uL (4.20-5.40); RED CELL DISTRIBUTION WIDTH 12.6 % (12.0-15.0); WHITE BLOOD COUNT 5.2 x10^3/uL (4.8-10.8)
[2020-10-07 18:32] LABS: % IRON SATURATION 26 % (20-50); ALBUMIN 4.2 g/dL (3.2-5.5); ALBUMIN/GLOBULIN RATIO 1.6 (1.0-2.2); ALKALINE PHOSPHATASE 48 IU/L (42-121); ALT ALANINE AMINOTRANSFERASE 19 IU/L (10-60); AST ASPARTATE AMINOTRANSFERASE 24 IU/L (10-42); BILIRUBIN,TOTAL 0.9 mg/dL (0.2-1.0); BUN - BLOOD UREA NITROGEN 10 mg/dL (6-20); CALCIUM 8.5 mg/dL (8.5-10.3); CARBON DIOXIDE - CO2 31 mmol/L (21-32); CHLORIDE 100 mmol/L (101-111); CHOL/HDL RATIO 3.1 (<4.4); CHOLESTEROL 178 mg/dL; CREATININE 1.1 mg/dL (0.4-1.0); GFR - MDRD 50 (>89); GLUCOSE 104 mg/dL (70-100); HDL CHOLESTEROL 58 mg/dL; IRON 64 ug/dL (28-170); LDL CHOLESTEROL,CALCULATED 104 mg/dL; LDL/HDL RATIO 1.8 (<4.4); POTASSIUM 3.6 mmol/L (3.5-5.0); SODIUM 139 mmol/L (135-145); TOTAL IRON BINDING CAPACITY 251 ug/dL (250-450); TOTAL PROTEIN 6.8 g/dL (6.7-8.2); TRANSFERRIN 179 mg/dL (192-382); TRIGLYCERIDES 80 mg/dL; VLDL CHOLESTEROL 16 mg/dL
[2020-10-07 18:36] LABS: THYROID STIMULATING HORMONE 2.93 uIU/mL (0.34-5.60)
[2020-10-07 18:43] LABS: FERRITIN 129.4 ng/mL (11.0-306.8)
[2020-10-07 20:37] LABS: ESTIMATED AVERAGE GLUCOSE 100 mg/dL (70-100); HEMOGLOBIN A1c% 5.1 % (4.27-6.07)
== END 2020-10-07 23:59 | disposition home or self-care (01) ==
LOC: LAB.WCP 11:19
PROVIDERS: ATTEND Family Medicine
DX: D50.9 Iron deficiency anemia, unspecified (principal); Z98.84 Bariatric surgery status
CPT/HCPCS: 36415; 80053; 80061; 82607; 82728; 83036; 83540; 83721; 84443; 84466; 85025

== ENCOUNTER 2021-06-03 14:01 | Outpatient (CLI) | payer MEDICARE ==
--- NOTE | 2021-06-04 15:57 | Mammography Report ---
BILATERAL DIGITAL SCREENING MAMMOGRAM 3D/2D: 06/03/2021 CLINICAL: Routine screening. Family history of breast cancer. Comparison is made to exams dated: 02/11/2020 mammogram, 12/21/2017 mammogram, and 12/25/2013 mammogra m - [facility]. There are scattered fibroglandular elements in both breasts. No significant masses, calcifications, or other findings are seen in either breast. There has been no significant interval change. IMPRESSION: NEGATIVE There is no mammographic evidence of malignancy. A 1 year screening mammogram is recommended. This exam was interpreted at Station ID: [id number]. NOTE: For mammograms, a report in lay terms will be sent to the patient. Approximately 15% of breast malignancies will not be visualized mammographically. In the management of a palpable breast mass, a negative mammogram must not discourage biopsy of a clinically suspicious lesion. Electronically Signed By: Som Jung M.D., jr/mana:06/03/2021 15:42:49 ACR BI-RADS Category 1: Negative 3341F PARENCHYMAL PATTERN: (A) - The breast(s) demonstrate(s) scattered fibroglandular densities. BI-RADS CATEGORY: (1) - 1 RECOMMENDATION: (ANNUAL) - Recommend routine annual screening mammography. [id number] 1 year screening LATERALITY: (B)
== END 2021-06-03 14:02 | disposition home or self-care (01) ==
LOC: DI.S 14:01
DX: Z12.31 Encounter for screening mammogram for malignant neoplasm of breast (principal); Z80.3 Family history of malignant neoplasm of breast

== ENCOUNTER 2021-06-17 12:06 | Outpatient (CLI) | payer MEDICARE ==
[2021-06-17 12:47] LABS: ALBUMIN 4.3 g/dL (3.2-5.5); ALBUMIN/GLOBULIN RATIO 1.4 (1.0-2.2); BILIRUBIN,TOTAL 0.9 mg/dL (0.2-1.0); CALCIUM 8.6 mg/dL (8.5-10.3); CREATININE 1.1 mg/dL (0.4-1.0); POTASSIUM 3.6 mmol/L (3.5-5.0); TOTAL PROTEIN 7.3 g/dL (6.7-8.2)
[2021-06-17 12:52] LABS: BASOPHILS # (AUTO) 0.1 10^3/uL (0.0-0.1); BASOPHILS % (AUTO) 1.1 %; EOSINOPHILS # (AUTO) 0.2 10^3/uL (0.0-0.7); EOSINOPHILS % (AUTO) 5.5 %; HCT - HEMATOCRIT 37.2 % (37.0-47.0); HGB - HEMOGLOBIN 11.8 g/dL (12.0-16.0); LYMPHOCYTES # (AUTO) 1.6 10^3/uL (1.5-3.5); LYMPHOCYTES % (AUTO) 36.8 %; MEAN CORPUSCULAR HEMOGLOBIN 31.5 pg (27.0-31.0); MEAN CORPUSCULAR HGB CONC 31.7 g/dL (32.0-36.0); MEAN CORPUSCULAR VOLUME 99.2 fL (81.0-99.0); MEAN PLATELET VOLUME 9.6 fL (7.9-10.8); MONOCYTES # (AUTO) 0.5 10^3/uL (0.0-1.0); MONOCYTES % (AUTO) 10.5 %; NEUTROPHILS % (AUTO) 45.9 %; PLT - PLATELET COUNT 284 10^3/uL (130-450); RED BLOOD COUNT 3.75 10^6/uL (4.20-5.40); RED CELL DISTRIBUTION WIDTH 12.2 % (12.0-15.0); WHITE BLOOD COUNT 4.4 x10^3/uL (4.8-10.8)
[2021-06-17 12:59] LABS: THYROID STIMULATING HORMONE 3.11 uIU/mL (0.34-5.60)
[2021-06-17 13:07] LABS: FERRITIN 167.2 ng/mL (11.0-306.8)
[2021-06-17 13:10] LABS: FOLATE 6.7 ng/mL (5.90 - >24.8)
== END 2021-06-17 12:07 | disposition home or self-care (01) ==
LOC: LAB 12:06
PROVIDERS: ATTEND Family Medicine
DX: D64.9 Anemia, unspecified (principal); E03.9 Hypothyroidism, unspecified
CPT/HCPCS: 36415; 80053; 82607; 82728; 82746; 83540; 84443; 84466; 85025

== ENCOUNTER 2022-01-16 09:45 | Outpatient (CLI) | payer MEDICARE ==
--- NOTE | 2022-01-17 21:03 | MRI Report ---
PROCEDURE: BRAIN WO INDICATIONS: MEMORY LOSS TECHNIQUE: Noncontrast axial T1 spin echo, axial T2 fast spin echo, sagittal and axial FLAIR, coronal T2 fast sp in echo, axial gradient echo, axial diffusion and ADC through the brain. COMPARISON: None. FINDINGS: Image quality: Excellent. CSF Spaces: Basal cisterns are patent. No extra-axial fluid collections. Ventricles are normal in size and shape. Brain: Mild global cerebral volume loss. Mild chronic microvascular ischemic changes. No restricted d iffusion to indicate recent ischemia. The major intracranial vascular flow-related signal voids are m aintained. No mass effect or midline shift. No unexpected intracranial susceptibility. Skull and face: Calvarium has normal marrow signal. Orbits appear normal. Sinuses: Sinuses and mastoids are clear. IMPRESSION: No acute intracranial abnormality. Mild global cerebral volume loss without definite regional or lobar predilection to suggest a specifi c neurodegenerative diagnosis. Mild chronic microvascular ischemic changes. Reviewed by: Som Jung MD on 01/17/2022 9:02 PM PST Approved by: Som Jung MD on 01/17/2022 9:02 PM PST Station ID: [id number]
== END 2022-01-16 09:46 | disposition home or self-care (01) ==
LOC: DI 09:45
PROVIDERS: ATTEND Psychiatry & Neurology Neurology
DX: R41.3 Other amnesia (principal)

== ENCOUNTER 2022-03-31 13:38 | Outpatient (CLI) | payer MEDICARE ==
--- NOTE | 2022-03-31 15:10 | XRAY Report ---
PROCEDURE: Shoulder 3 View RT INDICATIONS: PAIN OF RIGHT SHOULDER JOINT TECHNIQUE: 4 views of the shoulder were acquired. COMPARISON: None. FINDINGS: Bones: No fractures or dislocations. No suspicious bony lesions. Visualized ribs appear intact. Soft tissues: No suspicious soft tissue calcifications. IMPRESSION: Normal shoulder series. Reviewed by: Payam Chaidez on 03/31/2022 3:08 PM [facility] Approved by: Payam Chaidez on 03/31/2022 3:08 PM [facility] Station ID: [id number]
== END 2022-03-31 13:39 | disposition home or self-care (01) ==
LOC: DI.S 13:38
PROVIDERS: ATTEND Nurse Practitioner Family
DX: M25.511 Pain in right shoulder (principal)

== ENCOUNTER 2023-03-26 08:26 | Emergency (ER) | payer MEDICARE ==
--- NOTE | 2023-03-26 09:05 | ED Physician Documentation ---
PD HPI SYNCOPE - Stated complaint Stated Complaint: GLF - Chief complaint Chief Complaint: Neuro - History obtained from History obtained from: Patient - History of Present Illness Witnessed: Unwitnessed Timing - onset: Today Duration: Seconds Preceding symptoms: Vision changes, Light headed, Generalized weakness Associated symptoms: No: Headache, Palpitations, Diaphoresis, Abdominal pain Contributing factors: Decreased PO intake, Other (took water pill this morning) Similar symptoms before: Diagnosis (syncope related to Parkinsons) Recently seen: Not recently seen - Additional information Additional information: Will Alegria is a 67-year-old female with a history of Parkinson's who has had a syncopal episode this morning in her home. She has fallen forward over 1 step, landed face, down lacerating her forehead and resulting in some neck pain. She had dystonia and her neck pain is an exacerbation of that by her report. No peripheral symptoms. She indicates that she has had near syncope a number of times and she is usually able to steady herself and recover. She indicates that she believes this is secondary to her Parkinson's. She does take a water pill for fluid retention in her right leg and she took her water pill this morning. She was in her kitchen on her way back into tell her and it was 7:30 in the morning when she collapsed. She denies currently any headache, difficulty concentrated or nausea. She does have some dizziness which is normally present. She has developed a slight cough and scratchy throat 2 days ago and is not having symptoms now. Review of Systems Constitutional: reports: Fatigue. denies: Fever, Chills Eyes: denies: Decreased vision Ears: denies: Ear pain Nose: reports: Congestion. denies: Rhinorrhea / runny nose Throat: reports: Sore throat (resolved) Cardiac: denies: Chest pain / pressure, Palpitations Respiratory: reports: Cough (mild). denies: Dyspnea GI: reports: Constipation (as usual from Parkinsons). denies: Abdominal Pain, Nausea, Vomiting, Diarrhea : denies: Dysuria, Frequency Skin: denies: Rash Musculoskeletal: reports: Neck pain (with dystonia worse after this fall not limiting.). denies: Extremity swelling Neurologic: reports: Syncope, Head injury. denies: Generalized weakness, Focal weakness, Numbness, Difficulty speaking, Seizure, Confused, Altered mental status, Headache PD PAST MEDICAL HISTORY - Past Medical History Past Medical History: Yes Neuro: Parkinson's Endocrine/Autoimmune: HyPOthyroidism GI: Ulcers : Kidney stones Musculoskeletal: Chronic back pain - Past Surgical History Past Surgical History: Yes General: Gastric surgery - Present Medications Home Medications: Ambulatory Orders Medication Instructions Recorded Confirmed Ferrous Fumarate 324 mg PO DAILY #90 tablet 11/23/16 Levothyroxine [Synthroid] 1 tab PO DAILY 11/23/16 03/26/23 Omeprazole [PriLOSEC] 20 mg PO DAILY #90 capsule 11/23/16 hydroCHLOROthiazide [Hydrodiuril] 12.5 mg PO DAILY 11/23/16 03/26/23 diazePAM [Valium] 5 - 10 mg PO TID PRN #15 tablet 01/12/19 Carbidopa/Levodopa [Carbidopa-Levo 1 each PO DAILY 03/26/23 03/26/23 ER 25-100 Tab] Fluoxetine HCl [Prozac] 40 mg PO DAILY 03/26/23 03/26/23 HYDROcod/ACETAM 5/325 [Page 5/325] 1 - 2 tablet PO Q6H PRN #14 tablet 03/26/23 cloNIDine [Catapres] 0.1 mg PO ONCE 03/26/23 03/26/23 tiZANidine [Zanaflex] 4 mg PO DAILY 03/26/23 03/26/23 - Allergies Allergies/Adverse Reactions: Allergies Allergy/AdvReac Type Severity Reaction Status Date / Time Sulfa (Sulfonamide Allergy Anaphylaxis Verified 03/26/23 08:44 Antibiotics) Tetracyclines AdvReac Anaphylaxis Verified 03/26/23 08:44 - Social History Does the pt smoke?: No Smoking Status: Never smoker Does the pt drink ETOH?: No Does the pt have substance abuse?: No - Immunizations Immunizations are current?: Yes - POLST Patient has POLST: No PD ED PE NORMAL - Vitals Vital signs reviewed: Yes (hypotensive ) - General General: Alert and oriented X 3, No acute distress, Well developed/nourished - HEENT HEENT: PERRL, EOMI, Ears normal, Pharynx benign, Dentition benign, Other (There is a stellate laceration to the forehead at the hairline on the right side. Laceration extends to the galea the galea is not interrupted. There is dry mucous membranes.) - Neck Neck: Supple, no meningeal sign, Other (Mild bony tenderness to the mid cervical spine without restriction in movement.) - Cardiac Cardiac: RRR, No murmur - Respiratory Respiratory: No respiratory distress, Clear bilaterally - Abdomen Abdomen: Soft, Non tender, Other (Well-healed midline scar) - Back Back: No CVA TTP, No spinal TTP - Derm Derm: Normal color, Warm and dry, No rash - Extremities Extremities: No deformity, No edema - Neuro Neuro: Alert and oriented X 3, performance specialist 2-12 intact, No motor deficit, No sensory deficit, Normal speech Eye Opening: Spontaneous Motor: Obeys Commands Verbal: Oriented GCS Score: 15 - Psych Psych: Normal mood, Normal affect Results - Vitals Vitals: Vital Signs - 24 hr 03/26/23 03/26/23 03/26/23 08:34 11:19 12:21 Temperature 36.4 C L Heart Rate 82 67 75 Respiratory 16 15 15 Rate Blood Pressure 85/63 L 136/97 H 151/87 H O2 Saturation 98 98 95 Oxygen O2 Source Room air - EKG (time done) 0853 EKG releavant findings:: EKG personally interpreted by author of this note. Relevant findings are: Rate: Rate (enter#) (64) Rhythm: NSR Ischemia: Normal ST segments Compare to prior EKG: Changed from prior EKG ([facility] 11/23/2016 rate is slower) Computer interpretation: Agree with computer - Labs Labs: Laboratory Tests 03/26/23 03/26/23 03/26/23 09:15 09:15 09:20 WBC 4.3 L RBC 3.58 L Hgb 11.3 L Hct 35.9 L MCV 100.3 H MCH 31.6 H MCHC 31.5 L RDW 12.3 Plt Count 246 MPV 9.7 Neut # (Auto) 2.5 Lymph # (Auto) 1.0 L [place] # (Auto) 0.7 Eos # (Auto) 0.1 Baso # (Auto) 0.0 Absolute Nucleated RBC 0.00 Nucleated RBC % 0.0 Sodium 136 Potassium 3.9 Chloride 101 Carbon Dioxide 28 Anion Gap 7.0 BUN 22 H Creatinine 0.9 Estimated GFR (MDRD) 62 L Glucose 107 H POC Whole Bld Glucose 105 H Calcium 8.9 Total Bilirubin 1.3 H AST 45 H ALT 7 L Alkaline Phosphatase 59 Troponin I High Sens 2.3 Total Protein 6.6 Albumin 4.1 Globulin 2.5 Albumin/Globulin Ratio 1.6 Lipase 11 - Rads (name of study) Cervical spine Relevant Findings:: Prelim report reviewed (Impression: Due to for acute cervical spine fracture. Cervical spine degenerative changes are seen, which are worst at C6-C7.), EMP independent interpretation of test CT head Relevant Findings:: Prelim report reviewed (Impression: No intracranial hemorrhage is seen. No acute intracranial pathology.), EMP independent interpretation of test Procedures - Laceration (location) forehead Wound type: Stellate, Into subcut fat, Clean Neurovascular status: Sensory intact, Motor intact, Vascular intact Anesthesia: Lidocaine 1% (4ml), Lidocaine 2% (8ml) Wound preparation: Hibiclens, Irrigated copiously NS, Wound explored, To the base Skin layer closure: Nylon, Interrupted Other: Patient tolerated well, No complications, Neurovascular intact, Tetanus booster given - IVC sono (time) 0920 Bedside IVC sono: IVC measures (cm) (0.9), IVC collapsed c insp (cm) (complete), Dehydration (est 2 liter deficit) PD Medical Decision Making - ED course Complexity details: reviewed old records, reviewed results, re-evaluated patient, considered differential, d/w patient, d/w family Reviewed Lab Results: We reviewed a complete blood count showing a white blood cell count of 4.3 a hemoglobin of 11.3 hematocrit of 35.9 and platelets of 246,000 these values are very similar to what the patient has had over the past year. They do not indicate any specific etiology. Chemistries show normal electrolytes BUN is mildly elevated at 22 with a normal creatinine of 0.9 total bilirubin mildly elevated at 1.3 AST mildly elevated at 45 with a ALT low at 7 the patient does have history of intermittently elevated liver functions to a minimal level. No specific conclusion is reached related to these blood work values With the exception of mildly elevated BUN which is consistent with the level of dehydration that was found on the patient this morning. ED course: Will Alegria presented to the emergency department after a syncopal episode in her home having fallen and struck her head with a laceration to the forehead. She has a history of dystonia and has increased neck pain as well. Here in the emergency department we found the patient to be significantly dehydrated and found that to be a reasonable explanation for her syncopal episode. By history it appears this is not the first time this has happened and by history it looks like dehydration played a part in prior episodes as well. She is hydrated with IV saline laceration to her forehead is repaired and she feels much improved at discharge. Departure - Departure Disposition: 01 Home, Self Care Clinical Impression: Syncope and collapse, Dehydration Forehead laceration Qualifiers: Encounter type: initial encounter Qualified Code(s): S01.81XA - Laceration without foreign body of other part of head, initial encounter Condition: Stable Instructions: ED Dehydration, ED Laceration Facial Sutr Tape, ED Sprain Strain Neck Follow-Up: Vanessa Harper ARNP [Provider Admit Priv/Credential] - Prescriptions: HYDROcod/ACETAM 5/325 [Page 5/325] 1 - 2 tablet PO Q6H PRN #14 tablet PRN Reason: Pain Comments: Ashley, today it looks like the reason you had a fainting episode was related to dehydration. This was likely related in part to your use of hydrochlorothiazide. The usual intake of fluids should be about 2 quarts per day. My recommendation for today is to drink an additional quart of fluid to what you would normally drink. You are still partially dehydrated. I have E scribed some pain medication for you to the [facility] in [place] for your neck pain. The sutures will need to be removed in 5 to 7 days. Forms: PCP List Discharge Date/Time: 03/26/23 13:09
[2023-03-26 09:28] LABS: BASOPHILS % (AUTO) 0.9 %; EOSINOPHILS # (AUTO) 0.1 10^3/uL (0.0-0.7); EOSINOPHILS % (AUTO) 1.6 %; HCT - HEMATOCRIT 35.9 % (37.0-47.0); HGB - HEMOGLOBIN 11.3 g/dL (12.0-16.0); LYMPHOCYTES % (AUTO) 22.6 %; MEAN CORPUSCULAR HEMOGLOBIN 31.6 pg (27.0-31.0); MEAN CORPUSCULAR HGB CONC 31.5 g/dL (32.0-36.0); MEAN CORPUSCULAR VOLUME 100.3 fL (81.0-99.0); MEAN PLATELET VOLUME 9.7 fL (7.9-10.8); MONOCYTES # (AUTO) 0.7 10^3/uL (0.0-1.0); MONOCYTES % (AUTO) 15.6 %; NEUTROPHILS # (AUTO) 2.5 10^3/uL (1.5-6.6); NEUTROPHILS % (AUTO) 59.1 %; PLT - PLATELET COUNT 246 10^3/uL (130-450); RED BLOOD COUNT 3.58 10^6/uL (4.20-5.40); RED CELL DISTRIBUTION WIDTH 12.3 % (12.0-15.0); WHITE BLOOD COUNT 4.3 x10^3/uL (4.8-10.8)
[2023-03-26 09:37] LABS: ALBUMIN 4.1 g/dL (3.2-5.5); ALBUMIN/GLOBULIN RATIO 1.6 (1.0-2.2); BILIRUBIN,TOTAL 1.3 mg/dL (0.2-1.0); CALCIUM 8.9 mg/dL (8.5-10.3); CREATININE 0.9 mg/dL (0.6-1.3); POTASSIUM 3.9 mmol/L (3.5-4.5); TOTAL PROTEIN 6.6 g/dL (6.4-8.9)
[2023-03-26] MEDS: LIDOCAINE 1% 2 ML VIAL SUBQ STA (09:41)
[2023-03-26 09:53] LABS: TROPONIN I HIGH SENSITIVITY 2.3 ng/L (2.3-14.8)
--- NOTE | 2023-03-26 10:13 | CT Report ---
PROCEDURE: Head WO INDICATIONS: syncope, head injury TECHNIQUE: Noncontrast 4.5 mm thick angled axial sections acquired from the foramen magnum to the vertex. For r adiation dose reduction, the following was used: automated exposure control, adjustment of mA and/or kV according to patient size. COMPARISON: Correlation is made with prior brain MRI, 01/16/2022. Correlation is also made with the accompanying imaging. FINDINGS: Image quality: Excellent. CSF spaces: Basal cisterns are patent. No extra-axial fluid collections. Ventricles are normal in size and shape. Brain: No midline shift. No intracranial masses or hemorrhage. [place]-white matter interface is norm al. Skull and face: Calvarium and visualized facial bones are intact, without suspicious lesions. Sinuses: Visualized sinuses and mastoids are clear. IMPRESSION: No intracranial hemorrhage is seen. No acute intracranial pathology. Reviewed by: Peterson Walsh MD on 03/26/2023 9:12 AM [facility] Approved by: Peterson Walsh MD on 03/26/2023 9:12 AM [facility] Station ID: [id number]
--- NOTE | 2023-03-26 10:15 | CT Report ---
PROCEDURE: Cervical Spine WO INDICATIONS: syncope, head injury, neck pain TECHNIQUE: Noncontrast 3 mm thick sections acquired from the skull base to the T4 level. Sagittal and coronal r eformats were then constructed. For radiation dose reduction, the following was used: automated exp osure control, adjustment of mA and/or kV according to patient size. COMPARISON: Correlation is made with the accompanying imaging. FINDINGS: Image quality: Diagnostic, with note made of motion artifact. Bones: No fractures or dislocations. Visualized superior ribs are intact. There is at least moderate disc space narrowing seen at C6-C7 and C7-T1. At C6-C7, posteriorly direct ed endplate osteophytes are seen. Milder degenerative changes are seen elsewhere. Numerous levels of significant facet arthropathy can be seen. Soft tissues: Prevertebral soft tissues are normal in thickness. No paravertebral hematomas. No ap ical pneumothoraces. IMPRESSION: Negative for acute cervical spine fracture. Cervical spine degenerative changes are seen, which are worst at C6-C7. Reviewed by: Peterson Walsh MD on 03/26/2023 9:14 AM [facility] Approved by: Peterson Walsh MD on 03/26/2023 9:14 AM [facility] Station ID: [id number]
[2023-03-26] MEDS: SODIUM CHLORIDE 0.9% 1,000 ML IV STA (10:41)
[2023-03-26] MEDS: LIDOCAINE-MPF 2% 5 ML VIAL SUBQ ONE (11:03)
[2023-03-26] MEDS: TETANUS/DIPHTHERIA/PERTUSSIS 0.5 ML SYRINGE IM ONE (11:26)
[2023-03-26 12:21] VITALS: BP 151/87; O2SAT 95
[2023-03-26] MEDS: KETOROLAC 30 MG/ML VIAL IVP STA (12:47)
== END 2023-03-26 13:09 | disposition home or self-care (01) ==
LOC: ED 08:26
DX: S01.81XA Laceration without foreign body of other part of head, initial encounter (principal); W18.39XA Other fall on same level, initial encounter; Y92.000 Kitchen of unspecified non-institutional (private) residence as the place of occurrence of the external cause; R55 Syncope and collapse; E86.0 Dehydration; Z23 Encounter for immunization; G24.9 Dystonia, unspecified; G20.A1 Parkinson's disease without dyskinesia, without mention of fluctuations; E03.9 Hypothyroidism, unspecified; Z87.11 Personal history of peptic ulcer disease; Z87.442 Personal history of urinary calculi; Z98.84 Bariatric surgery status
CPT/HCPCS: 12014; 36415; 80053; 83690; 84484; 85025; 90471; 93005; 99284

== ENCOUNTER 2023-07-07 08:00 | Outpatient (CLI) | payer MEDICARE ==
[2023-07-07 20:00] LABS: BILIRUBIN,URINE NEGATIVE (NEGATIVE); GLUCOSE, URINE (UA) NEGATIVE (NEGATIVE); KETONES,URINE (UA) NEGATIVE (NEGATIVE); LEUKOCYTE ESTERASE, URINE NEGATIVE (NEGATIVE); NITRITE,URINE NEGATIVE (NEGATIVE); OCCULT BLOOD,URINE NEGATIVE (NEGATIVE); PROTEIN,URINE NEGATIVE (NEGATIVE); UROBILINOGEN,URINE 0.2 (NORMAL) E.U./dL (NORMAL)
[2023-07-07 20:17] LABS: BACTERIA,URINE Rare /HPF (None Seen); CLARITY,URINE CLEAR (CLEAR); RBC,URINE None Seen /HPF (0-5); SQUAMOUS EPITHELIAL CELL,UR FEW Squamous (<= Few)
== END 2023-07-07 23:59 | disposition home or self-care (01) ==
LOC: LAB.S 08:00
PROVIDERS: ATTEND Nurse Practitioner
DX: R10.9 Unspecified abdominal pain (principal)
CPT/HCPCS: 81001; 87086